=== PATIENT | male | born 1945 | race Caucasian/White ===

== ENCOUNTER 2019-05-25 10:29 | Emergency (ER) | payer MEDICARE ==
[2019-05-25 10:49] LABS: BASOPHILS % (AUTO) 0.7 % (0.0-5.0); EOSINOPHILS % (AUTO) 0.8 % (0.0-8.0); HEMATOCRIT 46.9 % (42-54); LYMPHOCYTES % (AUTO) 20.3 % (21.0-51.0); MEAN CORPUSCULAR HEMOGLOBIN 31.4 pg (27.0-33.0); MEAN CORPUSCULAR HGB CONC 33.3 g/dL (32.0-36.0); MEAN CORPUSCULAR VOLUME 94.2 fL (79-99); MONOCYTES % (AUTO) 7.6 % (3.0-13.0); NEUTROPHILS % (AUTO) 70.6 % (40.0-77.0); NUCLEATED RED BLOOD CELLS 0.1 % (0.0-0.19); PLATELET COUNT (AUTO) 166 K/uL (130-400); RED BLOOD CELL COUNT(AUTO) 4.98 MIL/uL (4.50-6.20); RED CELL DISTRIBUTION WIDTH 16.9 % (11.0-15.5); WHITE BLOOD COUNT (AUTO) 5.5 K/uL (4.8-10.8)
[2019-05-25 11:04] LABS: CREATININE 1.2 mg/dL (0.5-1.5); POTASSIUM 4.2 mmol/L (3.5-5.1)
[2019-05-25 11:09] LABS: BILIRUBIN,TOTAL 2.1 mg/dL (0.2-1.0); TOTAL PROTEIN, SERUM 5.9 g/dL (6.0-8.3)
[2019-05-25 11:43] LABS: INR 1.02 (0.85-1.15); PARTIAL THROMBOPLASTIN TIME 24.4 SEC (26.3-35.5); PROTHROMBIN TIME 10.7 SEC (9.6-11.6)
== END 2019-05-25 13:48 | disposition home or self-care (01) ==
LOC: EDH 10:29
DX: F10.20 Alcohol dependence, uncomplicated (principal); Z79.899 Other long term (current) drug therapy; Z98.890 Other specified postprocedural states
CPT/HCPCS: 36415; 70450; 80053; 83735; 84484; 85025; 85610; 85730; 93005; 99285; G0480

== ENCOUNTER 2019-07-03 00:15 | Inpatient (IN) | payer MEDICARE ==
[~2019-07-03] VITALS: Ht 195.6 cm; Wt 111.3 kg
[2019-07-03] MEDS ORDERED: THIAMINE HCL 100 MG/ML 2ML VIAL ONE (00:48)
[2019-07-03] MEDS ORDERED: CLONIDINE HCL 0.1 MG TABLET ONE (01:20)
[2019-07-03 01:34] LABS: BASOPHILS % (AUTO) 0.4 % (0.0-5.0); EOSINOPHILS % (AUTO) 0.1 % (0.0-8.0); HEMATOCRIT 41.7 % (42-54); LYMPHOCYTES % (AUTO) 8.8 % (21.0-51.0); MEAN CORPUSCULAR HEMOGLOBIN 31.4 pg (27.0-33.0); MEAN CORPUSCULAR HGB CONC 32.5 g/dL (32.0-36.0); MEAN CORPUSCULAR VOLUME 96.7 fL (79-99); MONOCYTES % (AUTO) 8.9 % (3.0-13.0); NEUTROPHILS % (AUTO) 81.8 % (40.0-77.0); NUCLEATED RED BLOOD CELLS 0.3 % (0.0-0.19); PLATELET COUNT (AUTO) 158 K/uL (130-400); RED BLOOD CELL COUNT(AUTO) 4.31 MIL/uL (4.50-6.20); RED CELL DISTRIBUTION WIDTH 18.8 % (11.0-15.5); WHITE BLOOD COUNT (AUTO) 8.4 K/uL (4.8-10.8)
[2019-07-03 01:47] LABS: CREATININE 1.6 mg/dL (0.5-1.5); POTASSIUM 4.1 mmol/L (3.5-5.1)
[2019-07-03 01:48] LABS: INR 1.32 (0.85-1.15); PARTIAL THROMBOPLASTIN TIME 30.6 SEC (26.3-35.5); PROTHROMBIN TIME 13.8 SEC (9.6-11.6)
[2019-07-03] MEDS ORDERED: HYDRALAZINE HCL 20 MG/ML VIAL ONE (01:55)
[2019-07-03 01:59] LABS: ALBUMIN 2.6 g/dL (3.5-5.0); BILIRUBIN,TOTAL 2.5 mg/dL (0.2-1.0); MAGNESIUM 2.4 mg/dL (1.80-2.40); THYROID STIMULATING HORMONE 2.04 uIU/mL (0.36-3.74); TOTAL PROTEIN, SERUM 6.1 g/dL (6.0-8.3)
[2019-07-03 02:04] LABS: PLATELET MORPHOLOGY PLT CLUMPS PRESENT
[2019-07-03 03:09] LABS: BILIRUBIN,URINE Small (NEGATIVE); COLOR,URINE Dark Yellow (YELLOW); GLUCOSE, URINE (UA) Negative (NEGATIVE); KETONES,URINE Negative (NEGATIVE); LEUKOCYTE ESTERASE ,URINE Trace (NEGATIVE); NITRATE,URINE Negative (NEGATIVE); OCCULT BLOOD,URINE Negative (NEGATIVE); PROTEIN,URINE Negative (NEGATIVE)
[2019-07-03 03:16] LABS: APPEARANCE,URINE SLIGHTLY CLOUDY (CLEAR)
[2019-07-03 03:17] LABS: AMPHET/METH SCREEN,URINE NEGATIVE (NEGATIVE); BARBITURATE SCREEN, URINE NEGATIVE (NEGATIVE); BENZODIAZEPINES SCREEN,URINE NEGATIVE (NEGATIVE); CANNABINOID SCREEN,URINE NEGATIVE (NEGATIVE); COCAINE SCREEN,URINE NEGATIVE (NEGATIVE); OPIATE SCREEN,URINE NEGATIVE (NEGATIVE); PHENCYCLIDINE SCREEN,URINE NEGATIVE (NEGATIVE)
[2019-07-03 03:21] LABS: BACTERIA,URINE Few /HPF (None Seen); HYALINE CASTS, URINE 0-1 /LPF (0-1 /LPF); MUCUS,URINE Rare LPF (None Seen); RBC,URINE 0-1 /HPF (0-1)
[2019-07-03 05:00] VITALS: BP 90/52
--- NOTE | 2019-07-03 05:00 | NUR ---
ADMIT PT ADMITTED TO ROOM 310, AA BUT IS CONFUSED. ADMISSION CARE DONE. ADMISSION DATA BASE COMPLETED. IN FOR MORE CARE AND MANAGEMENT. PT'S FRIEND NOT ABLE TO STAY TO WATCH PT. PRECINCT CAPTAIN ASK TO WATCH PT FOR NOW. Addendum: 07/03/19 at 0544 by JOSIANE ZUNIGA RN RN Amended: Links added.
[2019-07-03 05:08] LABS: HEMATOCRIT 42.4 % (42-54); MEAN CORPUSCULAR HEMOGLOBIN 31.7 pg (27.0-33.0); MEAN CORPUSCULAR VOLUME 96.1 fL (79-99); NUCLEATED RED BLOOD CELLS 0.5 % (0.0-0.19); PLATELET COUNT (AUTO) 175 K/uL (130-400); RED BLOOD CELL COUNT(AUTO) 4.41 MIL/uL (4.50-6.20); RED CELL DISTRIBUTION WIDTH 18.4 % (11.0-15.5); WHITE BLOOD COUNT (AUTO) 8.1 K/uL (4.8-10.8)
[2019-07-03 05:17] LABS: CARBON DIOXIDE 29 mmol/L (21-32); CHLORIDE 101 mmol/L (101-111); CREATININE 1.5 mg/dL (0.5-1.5); GLOMERULAR FILTR. RATE CALC 48 mL/min (>60); GLUCOSE,RANDOM 111 mg/dL (70-105); POTASSIUM 3.8 mmol/L (3.5-5.1); SODIUM SERUM 137 mmol/L (136-145); UREA NITROGEN, BLOOD 33 mg/dL (7-18)
[2019-07-03 05:19] LABS: ALCOHOL, BLOOD < 3 mg/dL (0-10)
[2019-07-03 05:21] LABS: AMMONIA < 10 umol/L (11-32)
[2019-07-03] MEDS ORDERED: ONDANSETRON HCL 4 MG/2 ML VIAL IVP PRN (06:00)
[2019-07-03] MEDS ORDERED: ALPRAZOLAM 0.25 MG TABLET PO PRN (06:00)
[2019-07-03] MEDS ORDERED: ACETAMINOPHEN 325 MG TAB PO PRN ×2 (06:00)
[2019-07-03] MEDS ORDERED: BANANA BAG IV SCH ×4 (06:30)
--- NOTE | 2019-07-03 08:00 | NUR ---
AM ROUNDS, AWAKE, HAS A SITTER IN PLACE.
--- NOTE | 2019-07-03 08:15 | NUR ---
REPORT REPORT GIVEN TO ANGE. ENDORSING PT FOR MORE CARE AND MANAGEMENT. NURSE'S ROUNDS DONE.
[2019-07-03] MEDS: BANANA BAG IV SCH ×4 (09:00)
[2019-07-03] MEDS: PANTOPRAZOLE SODIUM 40 MG TABLET.DR PO SCH (10:18)
[2019-07-03 12:00] VITALS: BP 87/60
--- NOTE | 2019-07-03 14:00 | NUR ---
DCP CM met with pt unable to answer questions at this time, called spouse Rasheeda on face sheet discussed dc plans. spouse stated Pt was independent before [facility], but now assist with ADL's, lives at home alone at [facility]. Pt's friend who own the [facility] Roxy De Souza and her daughter Amberly De Souza who states is a RN takes care of patient daily at home as much as possible. Rasheeda requested to have [phone] called as she knows more about the pt. Also states pt has one biological daughter Rosanne [phone] who will be the one to sign consent. Called Roxy. As per Roxy pt was at [facility] at one point but was not happy with the care that was being rendered, pt developed anay rash recently prior to getting dc'd from [facility], they verbalized they did not want to go back to the same facility, but would like for patient try another facility. Called Rosannewestley Carr pt's biological daughter made aware pt will need short term rehab prior to dc home, daughter is agreeable. JOMAR telephone consent obtained. Faxed order, clinicals, and pasrr to [facility], confirmation received. DC plan to SNF. CM to cont to follow up. Addendum: 07/03/19 at 1702 by ELIESER JETER LVN CM Amended: Links added.
[2019-07-03 16:00] VITALS: BP 126/72
--- NOTE | 2019-07-03 17:07 | NUR ---
CM Note: [facility] pending acceptance Spoke to Jennie w/[facility] received order, clinicals, and pasrr. Will come evaluate pt. Pt pending acceptance. Will need to compelete 3midnights prior to transfer, safe to DC Saturday once pt has acceptance. EMS form filled out flagged in chart, pending to be faxed w/current date, primary nurse to call [facility] once pt ready to DC. Primary nurse aware. CM to cont to follow up.
[2019-07-04] VITALS: BP 86/52
[2019-07-04] MEDS: LORAZEPAM 2 MG/ML 1 ML VIAL IVP PRN (01:26)
[2019-07-04 04:00] VITALS: BP 96/72
[2019-07-04 08:17] VITALS: BP 102/76
[2019-07-04] MEDS: PANTOPRAZOLE SODIUM 40 MG TABLET.DR PO SCH (10:17)
[2019-07-04] MEDS: BANANA BAG IV SCH ×4 (10:19)
--- NOTE | 2019-07-04 11:39 | NUR ---
cm note spoke to hugo cobian at [facility], and states pt is still pending for approval, will need to wait until saturday, to verify primary days, and secondary insurance.
[2019-07-04 12:23] VITALS: BP 101/68
[2019-07-04 17:12] VITALS: BP 129/91
[2019-07-04 19:15] VITALS: BP 128/72
[2019-07-05] VITALS (7 sets, daily range): BP systolic 90–125; BP diastolic 60–78
[2019-07-05] MEDS: LORAZEPAM 2 MG/ML 1 ML VIAL IVP PRN ×2 (00:42→05:05)
[2019-07-05] MEDS ORDERED: METOPROLOL TARTRATE 1 MG/ML 5ML VIAL IV SCH (05:45)
[2019-07-05] MEDS ORDERED: METOPROLOL TARTRATE 1 MG/ML 5ML VIAL IV ONE (05:55)
--- NOTE | 2019-07-05 06:06 | NUR ---
PT STATUS TELEMETRY OBSERVED PT AFIB HR 130'S-150'S SUSTAINING, PT BP 125/77, LYING CALMLY AT THIS TIME, NO C/O CHEST PAIN. ROD PULLER JOSE M MADE AWARE, NEW ORDERS RECEIVED FOR LOPRESSOR 5MG IV NOW, AND 25MG PO BID. LOPRESSOR 5MG ADMINISTERED AT 0604, BP 120/84. PT TOLERATED WELL. TELEMETRY CALLED HR 120 AT THIS TIME. WILL CONTINUE TO MONITOR PT.
[2019-07-05] MEDS: PANTOPRAZOLE SODIUM 40 MG TABLET.DR PO SCH (10:19)
[2019-07-05] MEDS: METOPROLOL TARTRATE 25 MG TAB PO SCH ×2 (10:19→21:00)
[2019-07-05] MEDS: BANANA BAG IV SCH ×4 (10:21)
[2019-07-05] MEDS: DEXTROSE 5 % AND 0.9 % NACL 1,000 ML IV SCH (20:00)
[2019-07-06] VITALS (12 sets, daily range): BP systolic 45–107; BP diastolic 28–82
[2019-07-06] MEDS: VANCOMYCIN 500MG+NS 100ML 100 ML IV SCH ×2 (02:30→14:30)
[2019-07-06 05:14] LABS: BASOPHILS % (AUTO) 0.8 % (0.0-5.0); HEMATOCRIT 44.9 % (42-54); LYMPHOCYTES % (AUTO) 3.6 % (21.0-51.0); MEAN CORPUSCULAR HEMOGLOBIN 31.5 pg (27.0-33.0); MEAN CORPUSCULAR VOLUME 98.5 fL (79-99); MONOCYTES % (AUTO) 4.5 % (3.0-13.0); NEUTROPHILS % (AUTO) 91.1 % (40.0-77.0); NUCLEATED RED BLOOD CELLS 0.9 % (0.0-0.19); PLATELET COUNT (AUTO) 110 K/uL (130-400); RED BLOOD CELL COUNT(AUTO) 4.55 MIL/uL (4.50-6.20); RED CELL DISTRIBUTION WIDTH 19.6 % (11.0-15.5); WHITE BLOOD COUNT (AUTO) 13.5 K/uL (4.8-10.8)
[2019-07-06 05:32] LABS: CREATININE 2.3 mg/dL (0.5-1.5); POTASSIUM 5.1 mmol/L (3.5-5.1)
--- NOTE | 2019-07-06 07:50 | NUR ---
pt in bed, alert to self, pending bedside swallow SHIRLEY lunaO, MD aware.
[2019-07-06] MEDS: PANTOPRAZOLE SODIUM 40 MG TABLET.DR PO SCH (09:00)
[2019-07-06] MEDS: METOPROLOL TARTRATE 25 MG TAB PO SCH (09:00)
[2019-07-06] MEDS: DEXTROSE 5 % AND 0.9 % NACL 1,000 ML IV SCH (09:57)
--- NOTE | 2019-07-06 11:40 | NUR ---
DYSPHAGIA EVAL COMPLETED. +S/S OF ASPIRATION WITH THIN AND PUREED TEXTURES. RECOMMEND NPO, SHORT TERM ALTERNATE MEANS OF NUTRITION/HYDRATION. MBSS IS RECOMMENDED PRIOR TO INITIATION OF P.O. RECOMMENDATIONS: DYSPHAGIA THERAPY 3-5X WEEK TO INCREASE ORAL MOTOR STRENGTH AND PHARYNGEAL SWALLOW: LTG#1: Pt WILL TOLERATE LEAST RESTRICTIVE DIET TO MEET NUTRITION/HYDRATION WITH NO S/S OF ASPIRATION. LTG#2: SKILLED EDUCATION Pt/FAMILY/STAFF STG#1: Pt WILL PARTICIPATE IN LARYNGEAL ELEVATION/EXCURSION EXERCISES WITH 80% ACCURACY. STG#2: Pt WILL PARTICIPATE IN TONGUE BASE RETRACTION EXERCISES WITH 80% ACCURACY. STG#3: Pt WILL PARTICIPATE IN ORAL MOTOR EXERCISES WITH 80% ACCURACY. STG#4: Pt WILL PARTICIPATE IN PLEASURE FEEDS OF PUREED CONSISTENCY WITH NO S/S OF ASPIRATION, STG#5: PT WILL BE ABLE TO PARTICIPATE IN MBSS. STG#6: SKILLED EDUCATION Pt/FAMILY/STAFF. Addendum: 07/06/19 at [address] Amended: Links added.
[2019-07-06] MEDS ORDERED: RENAL DOSE IV PRN (13:15)
[2019-07-06] MEDS: ZOSYN 3.375GM+NS 50ML 50 ML IV SCH ×2 (13:15→20:37)
[2019-07-06] MEDS ORDERED: SODIUM CHLORIDE 0.9% 500ML 500 ML IV SCH (13:15)
[2019-07-06] MEDS ORDERED: VANCOMYCIN 1GM+NS 250ML 250 ML IV SCH (13:15)
[2019-07-06] MEDS: SODIUM CHLORIDE 0.9% 1000ML 1,000 ML IV SCH ×2 (13:15→20:43)
[2019-07-06] MEDS ORDERED: LACTULOSE 20 GM/30 ML UDCUP PO SCH (13:45)
[2019-07-06] MEDS ORDERED: LACTULOSE 20 GM/30 ML UDCUP PO PRN (13:45)
[2019-07-06] MEDS ORDERED: VANCOMYCIN 1.5 GM in SODIUM CHLORIDE 0.9% 250 ML IV SCH (14:30)
[2019-07-06] MEDS: LORAZEPAM 2 MG/ML 1 ML VIAL IVP PRN (15:20)
--- NOTE | 2019-07-06 15:39 | NUR ---
cm note received call from Kellyarnaudrivka Nelson who states is ex but good friends with pt, she states that her number is [phone]. and that she is requesting that Roxy, the friend of pt that is at pts bedside be given information as needed and included in plan of care. informed Juliocesar that next of kin listed in michael as daughter on record, and that consents would need to come from her. also informed would call BRANDON for followup. call made to Surekha TAYLOR and updated on above concerns.
--- NOTE | 2019-07-06 15:43 | NUR ---
DAUGHTER Nitesh left message for daughter Rosanne to verify MPOA, JOMAR on pt, since pt is not alert and oriented at this time. Waiting for call back
[2019-07-06] MEDS ORDERED: LISI-617 PO (16:00)
[2019-07-06] MEDS ORDERED: BUPR100T13 PO (16:00)
[2019-07-06] MEDS ORDERED: FOLI1TAB15 PO (16:00)
[2019-07-06] MEDS ORDERED: SPIR25TA6 PO (16:00)
[2019-07-06] MEDS ORDERED: vitamin PO (16:00)
[2019-07-06] MEDS ORDERED: METO25CA PO (16:00)
[2019-07-06] MEDS ORDERED: TRAZ150T79 PO (16:00)
[2019-07-06] MEDS ORDERED: VITA-328 PO (16:00)
[2019-07-06] MEDS ORDERED: FURO20TA4 PO (16:00)
--- NOTE | 2019-07-06 16:53 | NUR ---
biological daughter Rosanne [phone] - Surrogate Decision Maker Nitesh met with pt's landlord Roxy and her daughter Amberly, pt was not in room. Educated them on Surrogate Decision Maker Law. Explained that daughter Rosanne, pt's only living child, is decision maker, since pt has no MPOA in place. Explained that pt must be alert and oriented to do MPOA or Directives. Roxy reports that daughter will "let pt go". Explained to them that if this is daughter's decision and we have to honor that. Unfortunately, pt did not make prior arrangements for his wishes. Pt arrived back to room and Amberly who is a nurse, stated that pt's lot worse today than before, he is unresponsive and his breathing has changed. Amberly noted that pt appears to have raddle when he breathes. Friends voiced understanding that daughter is decision maker. Nitesh recd call from daughter. Sw educated on Surrogate decision Maker law. Daughter voiced understanding and states she knew this day was coming and decisions would need to be made. Daughter informed of pt not doing well and code status was discussed. Daughter wants pt to be DNR DNI, and allowed to pass naturally. Daughter spoke to nurse Danis and informed this as well. Daughter states she is a teacher and if she does not answer right away, she will return our call bird.
--- NOTE | 2019-07-06 18:38 | NUR ---
Rapid response called for non responsive status and large amt bright red blood during suctioning of pt. BP 145/71, HR 120's afib per tele monitor, O2 sat 94% on 2lpm. NRB applied, O2 sat still 94%-96%, blood glucose 76. [facility] paged, HEEL PRICKER Geni Bloom updated by primary nurse. Cxr, abg's, and labs ordered. Spoke with pt's daughter Rosanne Carr who was informed of situation. She confirmed that she wants DNR status for pt.
[2019-07-06] MEDS: IPRATROPIUM/ALBUTEROL SULFATE 3 ML SOLUTION IH SCH ×2 (18:46→21:56)
[2019-07-06 18:52] LABS: ABG HCO3 11.5 mmol/L (21.0-28.0); ABG OXYGEN SATURATION 96.3 % (95.0-99.0); ABG PCO2 27 mmHg (35-48)
--- NOTE | 2019-07-06 19:10 | NUR ---
Rec's further orders from Bekah Bloom NP for octreotide GTT, IV protonix, and transfuse 1 unit PRBC's if Hg less than 7 and family agrees. Also Consult GI if family agrees. Spoke with Pt's daughter Rosanne Carr who says she agrees with blood transfusion if needed but no GI consult unless pt is in acute distress. She says if pt appears comfortable then does not want GI. Notified Bekah Bloom NP of this.
[2019-07-06 19:38] LABS: HEMATOCRIT 46.8 % (42-54); MEAN CORPUSCULAR HEMOGLOBIN 31.7 pg (27.0-33.0); MEAN CORPUSCULAR HGB CONC 31.5 g/dL (32.0-36.0); MEAN CORPUSCULAR VOLUME 100.7 fL (79-99); NUCLEATED RED BLOOD CELLS 0.6 % (0.0-0.19); PLATELET COUNT (AUTO) 86 K/uL (130-400); RED BLOOD CELL COUNT(AUTO) 4.65 MIL/uL (4.50-6.20); RED CELL DISTRIBUTION WIDTH 20.2 % (11.0-15.5); WHITE BLOOD COUNT (AUTO) 13.5 K/uL (4.8-10.8)
[2019-07-06 19:51] LABS: CREATININE 2.9 mg/dL (0.5-1.5); POTASSIUM 5.3 mmol/L (3.5-5.1)
[2019-07-06 19:52] LABS: INR 2.5 (0.85-1.15); PARTIAL THROMBOPLASTIN TIME 41.8 SEC (26.3-35.5); PROTHROMBIN TIME 25.8 SEC (9.6-11.6)
--- NOTE | 2019-07-06 20:00 | NUR ---
Nasal trumpet or nasopharyngeal airway 7.5mm was placed in pt left nare. Pt tolerated well no problems noted. Order was verified. Addendum: 07/06/19 at 2032 by ROOSEVELT RINCON RT Amended: Links added.
--- NOTE | 2019-07-06 20:00 | NUR ---
Informed Daughter Rosanne regarding patient being transferred to ICU.
[2019-07-06 20:08] LABS: ALBUMIN 2.7 g/dL (3.5-5.0); BILIRUBIN,TOTAL 10.2 mg/dL (0.2-1.0); TOTAL PROTEIN, SERUM 6.5 g/dL (6.0-8.3)
[2019-07-06] MEDS ORDERED: SODIUM BICARB 50MEQ 50ML VIAL IV SCH (20:26)
[2019-07-06] MEDS ORDERED: SODIUM BICARB 50MEQ 50ML VIAL IVPB SCH (20:30)
[2019-07-06] MEDS: PANTOPRAZOLE 40 MG/VIAL IVP SCH (20:37)
[2019-07-06] MEDS: SODIUM BICARBONATE 650 MG TAB PO SCH (21:00)
--- NOTE | 2019-07-06 21:12 | NUR ---
pt to transfer to PCU for close monitoring, primary nurse notified and updated, care endorsed.
--- NOTE | 2019-07-06 22:04 | NUR ---
Notified CLINICAL NURSE LEADER Geni Zaidi regarding critical level of AST and ALT. No new order was given. Patient is already transferred to ICU in room 219
[2019-07-06] MEDS ORDERED: SODIUM BICARB 8.4% 50ML SYRING 150 MEQ in DEXTROSE 5%-WATER 1,000 ML IV SCH (22:15)
[2019-07-06] MEDS ORDERED: NOREPINEPHRINE 4MG/NS 250ML 250 ML IV SCH ×2 (22:15→23:45)
[2019-07-06] MEDS ORDERED: SODIUM BICARB 50MEQ 50ML VIAL ONE (22:17)
[2019-07-06] MEDS ORDERED: DEXTROSE 5%-WATER 1,000 ML IV ONE (22:18)
[2019-07-06] MEDS: M.V.I. IV [ADULT] 10 ML, FOLIC ACID 1 MG, THIAMINE HCL 100 MG in SODIUM CHLORIDE 0.9% 1... IV SCH (22:21)
[2019-07-06] MEDS: OCTREOTIDE ACETATE 500 MCG in SODIUM CHLORIDE 0.9% 97.5 ML IV PRN (22:22)
[2019-07-06] MEDS ORDERED: ALBUMIN (HUMAN) 5% 500 ML IV SCH ×2 (22:30→23:45)
[2019-07-06 22:50] LABS: ABG BASE EXCESS -10.2 mmol/L (-2.0-3.0); ABG OXYGEN SATURATION 97.4 % (95.0-99.0); ABG PCO2 42 mmHg (35-48)
[2019-07-06] MEDS ORDERED: NOREPINEPHRINE BITARTRATE 1 MG/1 ML ML IV ONE (23:27)
[2019-07-06] MEDS ORDERED: SODIUM CHLORIDE 0.9% 250 ML IV ONE (23:28)
[2019-07-06] MEDS ORDERED: ALBUMIN (HUMAN) 5% 250 ML IV ONE ×2 (23:35→23:51)
[2019-07-07] VITALS (58 sets, daily range): BP systolic 54–127; BP diastolic 23–88
--- NOTE | 2019-07-07 | NUR ---
07/06/19 2210 Admitted patient from 3rd floor. Unresponsive. Initial assessment completed. On 100% NRB. ABGs done. Call placed to [facility] (Jeana Neil SPECIMEN TRANSPORTER field consultant). ABGs, lactic acid, afib w/rvr, general status reported. Sodium Bicarb 3 amps in liter of D5W ordered to infuse at 75 mls/hr. No family with patient. As per medical nurse Isrrael, daughter Rosanne was informed of patient transfer to ICU. 2350 Informed [facility] (jeana Neil)of Levophed drip started due to hypotension. Ordered hold CTof abdomen until tomorrow am.
[2019-07-07] MEDS: IPRATROPIUM/ALBUTEROL SULFATE 3 ML SOLUTION IH SCH ×5 (01:38→22:28)
--- NOTE | 2019-07-07 02:00 | NUR ---
Continue titrated Levophed drip. Neuro v/s unchanged.
[2019-07-07] MEDS: VANCOMYCIN 500MG+NS 100ML 100 ML IV SCH ×2 (03:30→14:52)
[2019-07-07 03:40] LABS: BASOPHILS % (AUTO) 0.1 % (0.0-5.0); EOSINOPHILS % (AUTO) 1.1 % (0.0-8.0); HEMATOCRIT 43.8 % (42-54); MEAN CORPUSCULAR HEMOGLOBIN 32.1 pg (27.0-33.0); MEAN CORPUSCULAR HGB CONC 32.2 g/dL (32.0-36.0); MEAN CORPUSCULAR VOLUME 99.7 fL (79-99); NEUTROPHILS % (AUTO) 93.8 % (40.0-77.0); NUCLEATED RED BLOOD CELLS 1.6 % (0.0-0.19); PLATELET COUNT (AUTO) 82 K/uL (130-400); RED BLOOD CELL COUNT(AUTO) 4.39 MIL/uL (4.50-6.20); RED CELL DISTRIBUTION WIDTH 19.8 % (11.0-15.5); WHITE BLOOD COUNT (AUTO) 10.5 K/uL (4.8-10.8)
[2019-07-07 03:49] LABS: ALBUMIN 2.8 g/dL (3.5-5.0); BILIRUBIN,TOTAL 14.9 mg/dL (0.2-1.0); CREATININE 3.2 mg/dL (0.5-1.5); POTASSIUM 5.2 mmol/L (3.5-5.1); TOTAL PROTEIN, SERUM 5.7 g/dL (6.0-8.3)
--- NOTE | 2019-07-07 04:00 | NUR ---
levophed drip weaned to 3 mcg/min.
[2019-07-07] MEDS: SODIUM CHLORIDE 0.9% 1000ML 1,000 ML IV SCH ×3 (04:36→22:03)
[2019-07-07] MEDS ORDERED: AMIODARONE HCL 150 MG in DEXTROSE 5%-WATER 100 ML IV PRN (06:15)
[2019-07-07] MEDS ORDERED: AMIODARONE HCL 900 MG in DEXTROSE 5%-WATER 500 ML IV PRN (06:15)
--- NOTE | 2019-07-07 06:29 | NUR ---
Call placed to [facility] earlier. Reported continued afib w/rvr , heartrate fluctuating 120's to 140's. Approved starting Cordarone drip per protocol.
[2019-07-07] MEDS: OCTREOTIDE ACETATE 500 MCG in SODIUM CHLORIDE 0.9% 97.5 ML IV PRN ×2 (06:48→18:57)
[2019-07-07] MEDS ORDERED: PHENYLEPHRINE HCL 10 MG in SODIUM CHLORIDE 0.9% 250 ML IV PRN (08:15)
[2019-07-07 08:20] LABS: ABG BASE EXCESS -11.6 mmol/L (-2.0-3.0); ABG HCO3 13.2 mmol/L (21.0-28.0); ABG OXYGEN SATURATION 97.9 % (95.0-99.0); ABG PCO2 28 mmHg (35-48)
[2019-07-07] MEDS: SODIUM BICARBONATE 650 MG TAB PO SCH ×3 (09:00→21:00)
[2019-07-07] MEDS ORDERED: ENOXAPARIN SODIUM 40 MG/0.4 ML SYRINGE SQ SCH (09:00)
[2019-07-07] MEDS: M.V.I. IV [ADULT] 10 ML, FOLIC ACID 1 MG, THIAMINE HCL 100 MG in SODIUM CHLORIDE 0.9% 1... IV SCH (09:00)
[2019-07-07] MEDS ORDERED: PHARMACY COMMUNICATION MISC SCH (09:15)
[2019-07-07] MEDS: ZOSYN 3.375GM+NS 50ML 50 ML IV SCH ×2 (09:38→22:02)
[2019-07-07] MEDS: PANTOPRAZOLE 40 MG/VIAL IVP SCH ×2 (09:38→22:02)
[2019-07-07] MEDS: SODIUM BICARB 8.4% 50ML SYRING 150 MEQ in DEXTROSE 5%-WATER 1,000 ML IV SCH ×2 (11:05→18:57)
[2019-07-07] MEDS: NOREPINEPHRINE BITARTRATE 8 MG/NS 250ML IV SCH ×2 (11:07)
[2019-07-07] MEDS: PHENYLEPHRINE HCL 50 MG/NS 250ML IV PRN ×6 (11:07→22:02)
--- NOTE | 2019-07-07 11:34 | NUR ---
HOLD. Pt ON CONTINUOUS BIPAP AT THIS TIME. Pt IN ICU WITH STATUS CHANGE SECONDARY TO POOR RESPIRATORY STATUS. TRANSMITTER TESTER WILL CONTINUE TO FOLLOW Pt. RE-EVALUATION RECOMMENDED WHEN CURRENT STATUS IMPROVES. NO FOOD OR LIQUID ARE RECOMMENDED AT THIS TIME. CONTINUE NPO STATUS. Addendum: 07/07/19 at 1136 by LUCY BRUNER, SPT ST Amended: Links added.
[2019-07-07 11:58] LABS: % IRON SATURATION 83.1 % (30-44)
[2019-07-07 12:07] LABS: GAMMA GLUTAMYL TRANSFERASE 173 U/L (5-85); LACTATE DEHYDROGENASE 1255 U/L (81-234)
[2019-07-07 12:14] LABS: BILIRUBIN,DIRECT 11.8 mg/dL (0.0-0.3); BILIRUBIN,TOTAL 17.5 mg/dL (0.2-1.0)
[2019-07-07 18:56] LABS: SODIUM,URINE RANDOM 63 mmol/l (40-220)
[2019-07-07 18:59] LABS: APPEARANCE,URINE CLOUDY (CLEAR); BILIRUBIN,URINE LARGE (NEGATIVE); COLOR,URINE YELLOW (YELLOW); GLUCOSE, URINE (UA) NEGATIVE (NEGATIVE); KETONES,URINE 5 mg/dL (NEGATIVE); LEUKOCYTE ESTERASE ,URINE MODERATE (NEGATIVE); NITRATE,URINE POSITIVE (NEGATIVE); OCCULT BLOOD,URINE LARGE (NEGATIVE); PROTEIN,URINE >=300 mg/dL (NEGATIVE)
[2019-07-07 19:28] LABS: BACTERIA,URINE Few /HPF (None Seen)
[2019-07-07 19:29] LABS: AMORPHOUS SEDIMENT,UR Few /LPF (None Seen); SQUAMOUS EPITHELIAL CELL,UR Rare /HPF (0-2)
[2019-07-08] VITALS (14 sets, daily range): BP systolic 66–127; BP diastolic 30–73
[2019-07-08] MEDS: NOREPINEPHRINE BITARTRATE 8 MG/NS 250ML IV SCH ×2 (00:44)
[2019-07-08] MEDS: PHENYLEPHRINE HCL 50 MG/NS 250ML IV PRN ×2 (02:11)
[2019-07-08] MEDS: VANCOMYCIN 500MG+NS 100ML 100 ML IV SCH (02:30)
[2019-07-08] MEDS: IPRATROPIUM/ALBUTEROL SULFATE 3 ML SOLUTION IH SCH ×2 (02:49→07:09)
[2019-07-08 03:11] LABS: CREATININE 3.6 mg/dL (0.5-1.5); MAGNESIUM 1.7 mg/dL (1.80-2.40); PHOSPHORUS 6.1 mg/dL (2.5-4.9); POTASSIUM 5.7 mmol/L (3.5-5.1); THYROID STIMULATING HORMONE 0.38 uIU/mL (0.36-3.74); URIC ACID 11.9 mg/dL (2.6-7.2)
[2019-07-08 03:51] LABS: CORRECTED WHITE BLOOD COUNT 17.7 K/uL (4.5-11.0); HEMATOCRIT 41.9 % (42-54); MEAN CORPUSCULAR HEMOGLOBIN 31.8 pg (27.0-33.0); MEAN CORPUSCULAR HGB CONC 31.7 g/dL (32.0-36.0); MEAN CORPUSCULAR VOLUME 100.4 fL (79-99); NUCLEATED RED BLOOD CELLS 7.1 % (0.0-0.19); RED BLOOD CELL COUNT(AUTO) 4.17 MIL/uL (4.50-6.20); RED CELL DISTRIBUTION WIDTH 19.5 % (11.0-15.5)
[2019-07-08 04:03] LABS: PLATELET COUNT (AUTO) 51 K/uL (130-400)
[2019-07-08] MEDS: SODIUM BICARB 8.4% 50ML SYRING 150 MEQ in DEXTROSE 5%-WATER 1,000 ML IV SCH (04:13)
[2019-07-08 05:43] LABS: BAND NEUTROPHILS % (MANUAL) 28 % (0-2); LYMPHOCYTES % (MANUAL) 1 % (22-44); MAN.DIFF COMMENT-IMPRESSION MANUAL DIFFERENTIAL; METAMYELOCYTES % 6 % (0-0); MONOCYTES % (MANUAL) 4 % (2-9); MYELOCYTES % 2 % (0-0); PLATELET MORPHOLOGY COMMENT DECREASED; SEGMENTED NEUTROPHILS % 59 % (40-70)
[2019-07-08] MEDS ORDERED: SODIUM POLYSTYRENE SULFONATE 15 GM/60 ML ML NG SCH (05:45)
[2019-07-08] MEDS ORDERED: MAGNESIUM 2GM PREMIX 50ML 50 ML IV ONE (06:18)
[2019-07-08] MEDS ORDERED: MAGNESIUM 2GM PREMIX 50ML 50 ML IV SCH (06:45)
[2019-07-08] MEDS: OCTREOTIDE ACETATE 500 MCG in SODIUM CHLORIDE 0.9% 97.5 ML IV PRN (06:46)
[2019-07-08 07:15] LABS: HEPATITIS A ANTIBODY IGM Negative (Negative); HEPATITIS B CORE IGM Negative (Negative); HEPATITIS Bs ANTIGEN SCREEN P Negative (Negative)
--- NOTE | 2019-07-08 07:50 | NUR ---
I CALLED PT'S DAUGHTER, YVETTE MENEZES, I UPDATED ON HER FATHER'S STATUS. I INQUIRED ABOUT HER REQUEST TO SPEAK WITH MD FOR POSSIBLE WITHDRAW. SHE STATES SHE WOULD LIKE TO SPEAK WITH THEM TO MAKE DECISION. I DID INFORM HER PT'S BLOOD PRESSURE IS LOW AND AT 100% FIO2. WILL NOTIFY ROUNDING PHYSICIAN.
--- NOTE | 2019-07-08 08:04 | NUR ---
UPDATED ERIC TONEY MACHINERY REPAIR MAINTENANCE SUPERVISOR REGARDING PT STATUS INVOLVING LOW BP, MAXED ON MILANA-SYNEPHRINE AND TITRATING LEVOPHED. STATES SHE WILL BE IN TO ASSESS PATIENT. I WILL CONT TO MONITOR CLOSELY.
--- NOTE | 2019-07-08 08:55 | NUR ---
RECEIVED CALL FROM PT'S DAUGHTER, WISHING TO WITHDRAW LIFE SUSTAINING MEDICATIONS AND TREATMENTS. PT IS A DNR/DN. CONSENT VERIFIED/WITNESSED WITH LESLIE MICHELLE RN.
[2019-07-08] MEDS ORDERED: THIAMINE HCL 100 MG/ML 2ML VIAL IVP SCH (09:00)
[2019-07-08] MEDS ORDERED: MORPHINE SULFATE 2 MG/ML 1ML SYG ONE (09:12)
--- NOTE | 2019-07-08 09:13 | NUR ---
RECEIVED ORDERS FOR WITHDRAWING OF CARE AND TREATMENTS AND OBTAINED COMFORT CARE ORDERS.
[2019-07-08] MEDS ORDERED: MORPHINE SULFATE 2 MG/ML 1ML SYG IVP PRN (09:15)
[2019-07-08] MEDS ORDERED: HALOPERIDOL LACTATE 5 MG/ML VIAL IV PRN (09:15)
[2019-07-08] MEDS ORDERED: LORAZEPAM 2 MG/ML 1 ML VIAL IVP PRN (09:15)
[2019-07-08] MEDS: MORPHINE SULFATE 2 MG/ML 1ML SYG IVP PRN ×2 (09:21→10:25)
--- NOTE | 2019-07-08 09:25 | NUR ---
BIPAP OFF AT THIS TIME.
--- NOTE | 2019-07-08 09:38 | NUR ---
Withdraw of Bipap and placed pt on room air. Addendum: 07/08/19 at 0939 by MINA CALDERA RT Amended: Links added.
--- NOTE | 2019-07-08 10:31 | NUR ---
f/u visit Friend Roxy at bedside. States pt on comfort measures so she and another friend at a bedside waiting for pt to pass so pt won't be alone. Sw provided emotional support.
--- NOTE | 2019-07-08 10:43 | NUR ---
CALLED PT'S DAUGHTER @ TO INFORM HER PATIENT AT 1035. NO ANSWER, LEFT STATION PHONE NUMBER TO CALL BACK @ [phone].
--- NOTE | 2019-07-08 11:19 | NUR ---
PT AT 1035, PRONOUNCED BY [facility]. DR. HOANG LOPEZ AND ERIC TONEY [facility] MADE AWARE AT 1039.
--- NOTE | 2019-07-08 11:33 | NUR ---
INFORMED DR. SMITH THAT PT AT 1035.
[2019-07-09 06:10] LABS: ALPHA-1-ANTITRYPSIN 198 mg/dL (90-200)
[2019-07-10 06:10] LABS: HERPES SIMPLEX VIRUS-1 BY PCR Negative (Negative); HERPES SIMPLEX VIRUS-2 BY PCR Negative (Negative)
== END 2019-07-08 10:35 | disposition expired | DRG 871 ==
LOC: EDH 00:15 → EDHIP 03:43 → OBSVTOIN 03:43 → 3BH 04:25 → 2CH 07-06 20:57
PROVIDERS: ADMIT Internal Medicine Critical Care Medicine; ATTEND Internal Medicine Critical Care Medicine
PROC: 5A09457 Assistance with Respiratory Ventilation, 24-96 Consecutive Hours, Continuous Positive Airway Pressure (ICD-10-PCS; principal; 2019-07-07)
PROC: 02HV33Z Insertion of Infusion Device into Superior Vena Cava, Percutaneous Approach (ICD-10-PCS; 2019-07-07)
DX: A41.9 Sepsis, unspecified organism (principal); G92 Toxic encephalopathy; J96.01 Acute respiratory failure with hypoxia; K76.7 Hepatorenal syndrome; E43 Unspecified severe protein-calorie malnutrition; K72.00 Acute and subacute hepatic failure without coma; R65.21 Severe sepsis with septic shock; N39.0 Urinary tract infection, site not specified; N17.9 Acute kidney failure, unspecified; E87.2 Acidosis; I50.20 Unspecified systolic (congestive) heart failure; I13.0 Hypertensive heart and chronic kidney disease with heart failure and stage 1 through stage 4 chronic kidney disease, or unspecified chronic kidney disease; D68.9 Coagulation defect, unspecified; E46 Unspecified protein-calorie malnutrition; I42.9 Cardiomyopathy, unspecified; Z66 Do not resuscitate; E86.0 Dehydration; N18.9 Chronic kidney disease, unspecified; D64.9 Anemia, unspecified; D69.6 Thrombocytopenia, unspecified; E87.5 Hyperkalemia; F03.90 Unspecified dementia, unspecified severity, without behavioral disturbance, psychotic disturbance, mood disturbance, and anxiety; I48.91 Unspecified atrial fibrillation; J44.9 Chronic obstructive pulmonary disease, unspecified; K74.60 Unspecified cirrhosis of liver; Z68.29 Body mass index [BMI] 29.0-29.9, adult
CPT/HCPCS: 36415; 36600; 70450; 70551; 71045; 74018; 76700; 80048; 80053; 80074; 80202; 80305; 81001; 82103; 82140; 82247; 82248; 82390; 82550; 82803; 82948; 82977; 83516; 83540; 83550; 83605; 83615; 83735; 83880; 83935; 84100; 84300; 84443; 84484; 84550; 85025; 85027; 85610; 85730; 86038; 86255; 86644; 86645; 86665; 86704; 86706; 86717; 86850; 86900; 86901; 87040; 87071; 87077; 87088; 87186; 87205; 87340; 87529; 92610; 93005; 93306; 94640; 94660; 94664; A4344; C1894; C9113; G0378; G0480; J0282; J0360; J2060; J2354; J2370; J2543; J3370; J3411; J3475; J3490; J7030; J7042; J7060; J7070; P9045